=== PATIENT | female | born 1950 | race Caucasian/White ===

== ENCOUNTER 2016-10-18 04:36 | Observation (INO) ==
[2016-10-18] MEDS ORDERED: Naloxone 0.4 MG/ML INJ IVP PRN (06:26)
--- NOTE | 2016-10-18 06:33 | Internal Med History&Physical ---
Date of Encounter: 10/18/16 Time of Encounter: 06:32 Assessment and Plan (1) Angioedema Current visit: Yes Status: Acute I clearly related to lisinopril use. Patient states she has been on lisinopril for years. Patient denies family history of angioedema. Patient appears much improved at this time I do not appreciate any tongue swelling however there is mild fullness of the throat.. Patient received 125 Solu-Medrol, 3 doses of epinephrine, Pepcid, FFP at the outside hospital. We will continue Pepcid, and is on 20 mg daily for 3 days, Benadryl for 3 days. Patient should avoid TEJAS or ARB for the rest of her life Qualifiers: Encounter type: initial encounter Qualified Code(s): T78.3XXA - Angioneurotic edema, initial encounter (2) Hypothyroidism Current visit: Yes Status: Acute Stable. Continue Synthroid. Qualifiers: Hypothyroidism type: unspecified Qualified Code(s): E03.9 - Hypothyroidism , unspecified (3) Hypertension Current visit: Yes Status: Acute Blood pressure is under good control at this time. Patient should follow-up with her PCP and discuss long-term blood pressure management now that she can no longer take lisinopril. Continue hydrochlorothiazide. Qualifiers: Hypertension type: essential hypertension Qualified Code(s): I10 - Essential (primary) hypertension (4) DVT prophylaxis Current visit: Yes Status: Acute Not indicated at this time as the patient is ambulatory and anticipate short hospital stay. Internal Medicine - H&P: HPI Chief complaint: Tongue swelling Admitted From: Emergency Dept Plans for Post Hospital Care: Home History of present illness: Ms. Brian is a 66 year old female with history of hypothyroidism and hypertension presents with tongue swelling. Patient states that midnight tonight she woke up and felt like her tongue was swollen as well as her throat. Patient presented to ED for treatment. Patient states she never had anything like this before. She states she felt mildly short of breath but otherwise could move air okay. At the time I examined the patient states that she feels much better, she feels like her tongue swelling has resolved and her throat swelling is still present but much improved. She denies fever, chills, chest pain, abdominal pain, nausea, vomiting, diarrhea. Patient states that she has been on lisinopril for many years and has never had this reaction before. Patient denies any family history of this type of reaction. Past Med Surg Social Fam HX - Past Medical History Medical history: diabetes, hypertension Psychiatric history: no psych history - Past Surgical History Surgical History: cholecystectomy - Social History Smoking Status: Never smoker - Additional Family History Additional family history: Denies family history of angioedema, throat swelling Internal Medicine - H&P: Meds Allergies lisinopril Allergy (Severe, Verified 10/18/16 06:35) See Comments Angioedema All Systems PM: A 10-system review of systems was performed and is negative for pertinent findings except as documented above in the HPI. - Constitutional Constitutional: no chills, no fever(s) - EENT Eyes: no change in vision Nose, mouth and throat: throat swelling, tongue swelling, no neck pain, no sinus pain, no sinus pressure - Cardiovascular Cardiovascular ROS IM: dyspnea, no chest pain, no edema, no orthopnea, no syncope - Respiratory Respiratory: no cough, no wheezing, no chest congestion, no excessive phlegm production, no change in phlegm color - Gastrointestinal Gastrointestinal: no abdominal pain, no diarrhea, no nausea, no vomiting - Genitourinary Genitourinary: no dysuria, no urinary frequency, no urinary hesitancy, no urinary incontinence - Musculoskeletal Musculoskeletal ROS IM: no numbness, no tingling - Integumentary Integumentary IM: no rash - Neurological Neurological ROS: no dizziness, no numbness, no tingling - Psychiatric Psychiatric: no anxiety, no depression - Endocrine Endocrine IM: no flushing - Allergic/Immunologic Allergic/Immunologic: tongue swelling, throat swelling, seasonal rhinorrhea, no itchy eyes, no uticaria - Constitutional Vitals: Temp Pulse Resp BP Pulse Ox 98.1 F 108 13 126/70 93 10/18/16 06:15 10/18/16 06:15 10/18/16 06:15 10/18/16 06:15 10/18/16 06:15 General appearance: Present: A&O X 3, pleasant, no acute distress, answers questions appropriately - Head Head exam: Present: atraumatic, normal inspection, normocephalic - Eye Eye exam: Present: EOMI, PERRL - ENT ENT exam: Present: mucous membranes moist Additional comments: No tongue or pharyngeal swelling appreciated. - Neck Neck exam general surgery: Present: full ROM, supple, trachea midline. Absent: tenderness Additional comments: Mild fullness to the laryngeal area - Respiratory Respiratory exam: Present: CTAB. Absent: rales, rhonchi, wheezes, tachypnea - Cardiovascular Cardiovascular exam: Present: RRR. Absent: gallop, rubs, systolic murmur - GI/Abdominal GI/Abdominal exam: Present: normal bowel sounds, soft. Absent: distended, tenderness - Extremities Exam Extremities exam: Present: warm. Absent: pedal edema, tenderness - Neurological Exam Neurological exam: Present: alert, CN II-XII intact, oriented X3, no focal deficits
[2016-10-18 07:28] LABS: Basophils % 0.1 %; Hematocrit 28.5 % (35.3-44.9); Hemoglobin 8.4 g/dL (11.5-15.4); Immature Granulocytes % 0.3 % (0-4); Immature Platelets 2.1 % (1.1-6.1); Lymphocytes # 0.3 K/mcL (0.6-4.6); Lymphocytes % 3.7 %; Mean Corpuscular HGB Conc 29.5 g/dL (31.6-35.5); Mean Corpuscular Volume 78.1 fL (83.0-100.0); Mean Platelet Volume 9.6 fL (9.4-12.4); Monocytes % 0.3 %; Neutrophils # 7.5 K/mcL (1.6-8.9); Platelet Count 380 K/mcL (140-400); Red Blood Count 3.65 M/mcL (3.82-4.97); Red Cell Distribution Width 18.4 % (11.5-14.5); Segmented Neutrophils % 95.6 %
[2016-10-18 07:40] LABS: BUN/Creatinine Ratio 18 (6-26); Blood Urea Nitrogen 17 mg/dL (7-20); Calcium 9.2 mg/dL (8.6-10.8); Carbon Dioxide 22 mEq/L (19-29); Chloride 102 mEq/L (98-109); Glucose 271 mg/dL (70-99); Osmolality,Calculated 297 (280-300); Sodium 138 mEq/L (136-145); eGFR For African Americans > 60 (> 60); eGFR For Non-African Americans > 60 (> 60)
--- NOTE | 2016-10-18 08:48 | Event Note ---
Date of Encounter: 10/18/16 Time of Encounter: 08:44 Patient was admitted this morning after she presented to [facility] [place] for sudden onset tongue and throat swelling last night. She says that her swelling started in the middle of the night and involved the right side of her tongue and throat and cause difficulty swallowing. Presently she reports that her symptoms have significantly improved and she is close to baseline. She denies any difficulty breathing or swallowing. Denies chest pain and wheezing. Physical exam: No acute distress. Oral mucosa is moist. No throat erythema, no tongue or uvular swelling noted. Heart is regular. Lungs are clear bilaterally. Plan: Patient with angioedema, on long-term treatment for at least 7 years per her report with lisinopril and recently started metformin. There are case reports of angioedema after initiation of metformin treatment particularly in patients also treated with statins or Sree inhibitors. At this time we will hold metformin and lisinopril. Continue supportive treatment. Monitor closely.
[2016-10-18] MEDS ORDERED: predniSONE 20 MG TABLET PO SCH ×2 (09:00)
[2016-10-18] MEDS ORDERED: Famotidine 20 MG TABLET PO SCH (09:00)
[2016-10-18 15:03] VITALS: BP 138/82
--- NOTE | 2016-10-18 15:55 | Discharge Summary ---
Date of Encounter: 10/18/16 Time of Encounter: 15:52 - Discharge Diagnosis (1) Type 2 diabetes mellitus Priority: Secondary Status: Acute Qualifiers: Diabetes mellitus complication status: without complication Diabetes mellitus shelter insulin use: without terminal make up operator use Qualified Code(s): E11.9 - Type 2 diabetes mellitus without complications (2) Angioedema Priority: Primary Status: Acute Qualifiers: Encounter type: initial encounter Qualified Code(s): T78.3XXA - Angioneurotic edema, initial encounter (3) Hypothyroidism Priority: Secondary Status: Acute Qualifiers: Hypothyroidism type: unspecified Qualified Code(s): E03.9 - Hypothyroidism , unspecified (4) Hypertension Priority: Secondary Status: Acute Qualifiers: Hypertension type: essential hypertension Qualified Code(s): I10 - Essential (primary) hypertension - Discharge Medications Prescriptions: Famotidine [Pepcid] 20 mg PO BID #8 tablet predniSONE [PredniSONE] 40 mg PO DAILY 4 Days Home Medications: Acetaminophen with Codeine [Acetaminophen-Cod #3 Tablet] 1 tab PO TID PRN [History] Alendronate Sodium 70 mg PO QWEEK 10/18/16 [History] Cetirizine HCl [Zyrtec] 10 mg PO DAILY 10/18/16 [History] Cholecalciferol (D-3) [Vitamin D] 5,000 unit PO DAILY 10/18/16 [History] Famotidine [Pepcid] 20 mg PO BID #8 tablet 10/18/16 [Rx] Levothyroxine Sodium 88 mcg PO DAILY 10/18/16 [History] Omeprazole [PriLOSEC] 40 mg PO DAILY 10/18/16 [History] hydroCHLOROthiazide [Hydrochlorothiazide] 25 mg PO DAILY #30 tablet 10/18/16 [Rx ] predniSONE [PredniSONE] 40 mg PO DAILY 4 Days 10/18/16 [Rx] Allergies/Adverse Reactions: Allergies lisinopril Allergy (Severe, Verified 10/18/16 06:35) See Comments Angioedema Date of admission: 10/18/16 05:57 Primary care physician: Zulay Santizo CNP - Patient Status Disposition: Home, Self-Care Condition: Good Functional capacity at discharge: independent ambulation Overall status at discharge: patient is back to baseline - Discharge Instructions Follow Up With: Zulay Santizo CNP [Primary Care Provider] - Additional Instructions: Avoid NSAIDs and TEJAS inhibitor. Avoid metformin. Follow up with her primary care physician within 5-7 days. If throat swelling or tongue swelling recurs return promptly to the hospital or call 911. - Diet and Activity Diet: advance to your usual diet, diabetic diet, low fat, low cholesterol, low salt diet Hospital course: Ms. Brian is a 66 year old female with past medical history is significant for hypertension and newly diagnosed diabetes recently started on metformin who presented to the hospital with sudden onset tongue and throat swelling. She was admitted to the ICU for observation due to angioedema. TEJAS inhibitor was discontinued as well as the rest of her home medications. Her angioedema had completely resolved. She was instructed to never take lisinopril or any medications from the same class. Given some case reports of metformin-induced angioedema I instructed the patient to avoid metformin. She will be started on HCTZ 25 mg daily and discharged home. She will follow up with primary care physician closely. She will need to be started on a different antidiabetic medication. I recommend avoiding metformin, and adding this to her medication reaction given the temporal correlation between the start of this medication and the onset of angioedema. Avoid NSAIDs and medications from that DPP-4I such as sitagliptin as these medications have also been involved and the pathology of angioedema. Patient was instructed to follow-up with her primary care physician within the next 5-7 days and to call 911 or return promptly to the hospital if symptoms recur. - Time Spent with Patient Total time spent providing and/or coordinating discharge services: - Constitutional Vitals: Temp Pulse Resp BP Pulse Ox 98.2 F 84 18 138/82 96 10/18/16 12:00 10/18/16 15:02 10/18/16 15:02 10/18/16 15:02 10/18/16 15:02 General appearance: Present: A&O X 3, pleasant, no acute distress, answers questions appropriately - ENT Additional comments: No tongue or throat swelling. No erythema or exudates. No palpable neck masses no lymphadenopathy. - Respiratory Respiratory exam: Present: CTAB. Absent: accessory muscle use, rales, rhonchi, wheezes - Cardiovascular Cardiovascular exam: Present: RRR, +S1, +S2. Absent: diastolic murmur, gallop, rubs, systolic murmur
== END 2016-10-18 16:15 | disposition home or self-care (01) ==
LOC: ICNU → SUATTDRO 05:57 → ICNU 06:10
PROVIDERS: ADMIT Internal Medicine; ATTEND Internal Medicine